=== PATIENT | female | born 1970 | race Caucasian/White ===

== ENCOUNTER 2018-09-14 11:08 | Outpatient (CLI) | payer OTHER | END 2018-09-14 11:15 | disposition home or self-care (01) | LOC: SONOGRAMA 11:08 | DX: E04.1 Nontoxic single thyroid nodule (principal) ==

== ENCOUNTER 2019-10-11 08:32 | Outpatient (CLI) | payer OTHER | END 2019-10-11 08:34 | disposition home or self-care (01) | LOC: SONOGRAMA 08:32 → MAMO-SONO 09:15 | DX: D25.0 Submucous leiomyoma of uterus (principal); N92.1 Excessive and frequent menstruation with irregular cycle ==